=== PATIENT | female | born 1995 | race African-American/Black ===

== ENCOUNTER 2017-07-29 23:24 | Emergency (ER) | payer OTHER, SELFPAY ==
[2017-07-30 01:54] LABS: Urine Blood TRACE (NEG); Urine Glucose NEGATIVE (NEG); Urine Protein 1+ (NEG); Urine Specific Gravity >1.030 (1.005-1.030)
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
== END 2017-07-30 02:13 | disposition home or self-care (01) ==
LOC: ER 23:24
DX: R51 Headache (principal); V49.59XA Passenger injured in collision with other motor vehicles in traffic accident, initial encounter; Z72.0 Tobacco use
CPT/HCPCS: 70450; 81003; 81025; 99284